=== PATIENT | male | born 1995 | race Asian ===

== ENCOUNTER 2024-01-21 07:30 | Emergency (ER) | payer OTHER ==
[~2024-01-21] VITALS: Ht 165.1 cm; Wt 75.0 kg
[2024-01-21 07:43] VITALS: O2SAT 98
[2024-01-21 09:37] VITALS: BP 120/76
[2024-01-21] MEDS: HYDROCODONE/ACETAMINOPHEN 10/325MG TABLET PO ONE (09:37)
[2024-01-21] MEDS ORDERED: IBUP-2030 MT (11:22)
[2024-01-21 11:45] VITALS: PULSE 86; RESP 18; TEMP 36.72516; O2SAT 98
== END 2024-01-21 11:50 | disposition home or self-care (01) ==
LOC: ER 07:30
DX: S70.02XA Contusion of left hip, initial encounter (principal); W18.30XA Fall on same level, unspecified, initial encounter; Y93.89 Activity, other specified; Y92.89 Other specified places as the place of occurrence of the external cause; Y99.8 Other external cause status
CPT/HCPCS: 73502; 99283